=== PATIENT | female | born 1945 | race Caucasian/White ===

== ENCOUNTER → 2019-02-13 | Outpatient (CLI) | payer MEDICARE, OTHER | END | disposition home or self-care (01) | LOC: PCVCCLINIC 11:00 | PROVIDERS: ATTEND Internal Medicine Cardiovascular Disease | DX: I25.10 Atherosclerotic heart disease of native coronary artery without angina pectoris (principal); R93.1 Abnormal findings on diagnostic imaging of heart and coronary circulation; E78.00 Pure hypercholesterolemia, unspecified; R09.89 Other specified symptoms and signs involving the circulatory and respiratory systems; I10 Essential (primary) hypertension; M19.90 Unspecified osteoarthritis, unspecified site; Z82.49 Family history of ischemic heart disease and other diseases of the circulatory system; Z87.891 Personal history of nicotine dependence; Z79.82 Long term (current) use of aspirin; Z88.2 Allergy status to sulfonamides; Z91.041 Radiographic dye allergy status | CPT/HCPCS: 36415; 80061; 93005; G0463 ==

== ENCOUNTER → 2019-02-27 | Outpatient (CLI) | payer MEDICARE, OTHER ==
--- NOTE | 2019-02-27 17:44 | PCVCIMAG ---
APPROVED REPORT Imaging Protocol: Rest Tc-99m/Stress Tc-99m 1 day Study performed: 02/27/2019 09:57:40 Indication: CAD, Elevated CA Score Patient Location: Out-Patient Stress Nurse: Luna Patton RN, Fatimah Garcia RN NM Tech:Taye Dejesus NMCLEMENTINEB Ht: 5 ft 1 in Wt: 191 lbs BSA: 1.85 m2 HR: 96 bpm BP: 175/80 mmHg BMI: 36.0 Rhythm: Sinus Rhythm Medical History Medical History: Age, HTN, Family Hx of CAD, Former Smoker Medications: Atorvastatin, Maxide, ASA Allergies: Many - none interfere with test Pretest Chest Pain Characteristics: No chest pain Exercise History: Physically active Resting Data Rest SPECT myocardial perfusion imaging was performed in supine position 45 minutes following the intravenous injection of 12 mCi of Tc-99m Sestamibi. Time of rest injection: 09 Date: 02/27/2019 Administration Route: IV Administration Site: Left Arm Pharmacologic Stress Pharmacologic stress test was performed by injecting Regadenoson 0.4 mg IV push over 10-15 seconds immediately followed by the intravenous injection of 31.6 mCi of Tc-99m Sestamibi. Time of stress injection: 1110 Date: 02/27/2019 Administration Route: IV Administration Site: Left Arm Gated Stress SPECT was performed 45 minutes after stress injection. The images were gated to evaluate regional wall motion and calculate left ventricular ejection fraction. Stress Test Details Stress Test: Pharmacologic stress testing performed using 0.4 mg of regadenoson per 5 mL given IV over 10 seconds. Reason for pharmacologic stress test: Multiple Knee Injuries. HRMax Heart Rate (APMHR): 146 bpm Resting HR: 96 bpmTarget HR (85% APMHR): 124 bpm Max HR Achieved: 114 bpm % of APMHR: 78 Recovery HR: 97 bpm BP Resting BP: 175/80 mmHg Max BP: 154/72 mmHg Recovery BP: 157/70 mmHg ECG Resting ECG: Sinus Rhythm Stress ECG: Sinus Tachycardia Arrhythmia: PVC's Recovery ECG: Sinus Rhythm Clinical Reason for Termination: Completed protocol Stress Symptoms: Dyspnea Exercise duration: min 55 sec Symptoms resolved with caffeine. Stress ECG Conclusion ECG: Non-ischemic Study Quality Study: Good Study Data Post stress, the left ventricular ejection was 76%.. SSS: 2 SRS: 8 SDS: 0 TID = 1.12. Perfusion No evidence of stress induced ischemia or prior myocardial infarction. Wall Motion Normal left ventricular size and function with no regional wall motion abnormalities. Nuclear Conclusion No evidence of stress induced ischemia or prior myocardial infarction. Normal left ventricular size and function with no regional wall motion abnormalities. Post stress, the left ventricular ejection was 76%. No prior study available for comparison. Interpreted by: Harry Hale MD Electronically Approved: 02/27/2019 12:56:07 <Conclusion> ECG: Non-ischemic
--- NOTE | 2019-02-28 09:16 | PCVCIMAG ---
APPROVED REPORT Study performed: 02/27/2019 08:59:28 EXAM: Comprehensive 2D, Doppler, and color-flow Echocardiogram Patient Location: Echo lab Status: routine BSA: 1.88 HR: 72 bpmBP: 152/86 mmHg Rhythm: NSR Other Information Study Quality: Adequate Risk Factors: Cardiac Risk Factors: HTN Indications CAD elevated calcium score 2D Dimensions IVSd: 13.18 (7-11mm) LVDd: 33.71 mm PWd: 11.30 (7-11mm)Ascending Ao: 32.47 (22-36mm) LVDs: 23.71 (25-40mm) Left Atrium: 34.23 (27-40mm) Aortic Root: 29.65 mm LV Single Plane 4CH: 55.64 % LV Single Plane 2CH: 59.05 % Biplane EF: 57.6 % Volumes Left Atrial Volume (Systole) Single Plane 4CH: 46.79 mLSingle Plane 2CH: 50.61 mL LA ESV Index: 28.00 mL/m2 Aortic Valve AoV Peak Napoleon.: 1.18 m/s AO Peak Gr.: 5.58 mmHgLVOT Max P.32 mmHg LVOT Max V: 1.04 m/s Mitral Valve E/A Ratio: 1.7 MV Decel. Time: 199.68 ms MV E Max Napoleon.: 0.90 m/s MV A Napoleon.: 0.54 m/s IVRT: 89.97 ms Pulmonary Valve PV Peak Napoleon.: 0.82 m/sPV Peak Gr.: 2.70 mmHg Pulmonary Vein P Vein S: 0.42 m/sP Vein A: 0.36 m/s P Vein D: 0.52 m/sP Vein A Dur.: 121.1 msec P Vein S/D Ratio: 0.81 Tricuspid Valve TR Peak Napoleon.: 2.42 m/s TR Peak Gr.: 23.47 mmHg TV Vmax: 0.64 m/s Left Ventricle The left ventricle is normal size. There is normal LV segmental wall motion. Mild concentric left ventricular hypertrophy. Left ventricular systolic function is normal. The left ventricular ejection fraction is within the normal range. LVEF is 55-60%. Grade II - pseudonormal filling dynamics. Right Ventricle The right ventricle is normal size. The right ventricular systolic function is normal. Atria The left atrium size is normal. The right atrium size is normal. Aortic Valve The aortic valve is normal in structure. No aortic regurgitation is present. There is no aortic valvular stenosis. Mitral Valve The mitral valve is normal in structure. Mild mitral regurgitation. No evidence of mitral valve stenosis. Tricuspid Valve The tricuspid valve is normal in structure. Mild tricuspid regurgitation with PAP of 30 mmHg. Pulmonic Valve The pulmonary valve is normal in structure. Mild pulmonic regurgitation. Great Vessels The aortic root is normal in size. IVC is normal in size and collapses >50% with inspiration. Pericardium There is no pericardial effusion. There is no pleural effusion. <Conclusion> The left ventricle is normal size. LVEF is 55-60%. Grade II - pseudonormal filling dynamics. The right ventricle is normal size. The left atrium size is normal. The aortic valve is normal in structure. Mild mitral regurgitation. Mild tricuspid regurgitation with PAP of 30 mmHg. The aortic root is normal in size. There is no pericardial effusion.
== END | disposition home or self-care (01) ==
LOC: PCVCIMAG 09:27
PROVIDERS: ATTEND Internal Medicine Cardiovascular Disease
DX: I65.23 Occlusion and stenosis of bilateral carotid arteries (principal); I08.1 Rheumatic disorders of both mitral and tricuspid valves; I25.10 Atherosclerotic heart disease of native coronary artery without angina pectoris; R93.1 Abnormal findings on diagnostic imaging of heart and coronary circulation; Z82.49 Family history of ischemic heart disease and other diseases of the circulatory system
CPT/HCPCS: 78452; 93017; 93306; 93880; A9500